=== PATIENT | female | born 1960 | race Caucasian/White ===

== ENCOUNTER 2020-04-19 07:59 | Outpatient (REF) | payer OTHER, SELFPAY ==
[2020-04-19 10:00] LABS: Alanine Aminotransferase 23 U/L (0-31); Albumin Level 4.4 g/dL (3.5-5.0); Alkaline Phosphatase 70 U/L (39-117); Anion Gap 11 (12-20); Aspartate Amino Transferase 19 U/L (5-31); Bilirubin Total 0.4 mg/dL (0.0-1.0); Blood Urea Nitrogen 20 mg/dL (9-16); Calcium 8.7 mg/dL (8.4-10.2); Carbon Dioxide 30 mmol/L (22-29); Chloride 103 mmol/L (96-108); Cholesterol 209 mg/dL; Estimated Glomerular Filt Rate > 60; Glucose Random 91 mg/dL (60-115); HDL Cholesterol 53 mg/dL; LDL Cholesterol Calculated 135 mg/dl; Potassium 4.6 mmol/l (3.3-5.1); Sodium 139 mmol/L (135-145); Total Protein 7.1 g/dL (6.5-8.0); Triglycerides 107 mg/dL
[2020-04-19 10:18] LABS: Estimated Average Glucose 117 mg/dL; Hemoglobin A1c % 5.7 %
[2020-04-19 10:22] LABS: Free T4 (Free Thyroxine) 1.18 ng/dL (0.71-1.85); Thyroid Stimulating Hormone 0.27 uIU/mL (0.32-4.0)
[2020-04-19 10:23] LABS: Hematocrit 38.6 % (37-47); Hemoglobin 12.8 g/dl (12.0-16.0); Mean Corpuscular HGB Conc 33.2 g/dl (31.0-35.0); Mean Corpuscular Hemoglobin 30.2 pg (27.0-33.0); PLT CLUMP 1; Red Blood Count 4.24 X10*6/uL (4.20-5.50); Red Cell Distribution Width 13.2 % (11.0-16.0)
[2020-04-19 10:24] LABS: PLT ABN DIST 1
[2020-04-19 10:25] LABS: HIV AB/AG Nonreactive (Nonreactive); HIV Num 1 0.13 S/CO (0.00-0.99)
[2020-04-19 10:28] LABS: ~HepC Num1 0.06 S/CO (0.00-0.79); ~Hepatitis C Antibody Nonreactive (Nonreactive)
[2020-04-19 10:36] LABS: White Blood Count 3.2 X10*3/uL (4.8-10.8)
== END 2020-04-19 08:00 | disposition home or self-care (01) ==
LOC: HO.LAB 07:59
PROVIDERS: Visit Provider Internal Medicine
DX: I10 Essential (primary) hypertension (principal); R73.01 Impaired fasting glucose; E78.00 Pure hypercholesterolemia, unspecified; E03.9 Hypothyroidism, unspecified; Z11.59 Encounter for screening for other viral diseases
CPT/HCPCS: 36415; 80053; 80061; 83036; 84439; 84443; 85027; 86803; 87389

== ENCOUNTER 2020-09-23 07:02 | Outpatient (REF) | payer OTHER, SELFPAY ==
[2020-09-23 08:12] LABS: Imm Gran Abs Auto 0.01 X10*3/uL (0.00-0.03); Imm Gran Pct Auto 0.3 % (0.0-0.4); MANUAL DIFF FLAG SCAN; PLT CLUMP 1; Red Cell Distribution Width 13.2 % (11.0-16.0); SCAN SMEAR FLAG 1
[2020-09-23 08:14] LABS: Basophils Percent Auto 1.2 % (0-2); Eosinophils Absolute Auto 0.1 X10*3/uL (0.0-0.4); Eosinophils Percent Auto 3.5 % (0-4); Hematocrit 41.2 % (37-47); Hemoglobin 13.7 g/dl (12.0-16.0); Lymphocytes Absolute Auto 2.3 X10*3/uL (1.2-4.9); Lymphocytes Percent Auto 67.6 % (20-40); Mean Corpuscular HGB Conc 33.3 g/dl (31.0-35.0); Mean Corpuscular Hemoglobin 30.6 pg (27.0-33.0); Mean Corpuscular Volume 92.2 fL (80-98); Monocytes Absolute Auto 0.5 X10*3/uL (0.1-1.2); Neutrophils Absolute Auto 0.4 X10*3/uL (2.0-8.3); Neutrophils Percent Auto 12.4 % (45-73); Red Blood Count 4.47 X10*6/uL (4.20-5.50); White Blood Count 3.4 X10*3/uL (4.8-10.8)
[2020-09-23 08:26] LABS: Platelet Count (Citrate) 264 X10*3/uL (150-310)
[2020-09-23 08:55] LABS: Free T4 (Free Thyroxine) 0.99 ng/dL (0.71-1.85); Thyroid Stimulating Hormone 3.09 uIU/mL (0.32-4.0)
[2020-09-23 09:42] LABS: SLIDE REVIEW VERIFIED
== END 2020-09-23 07:03 | disposition home or self-care (01) ==
LOC: HO.LAB 07:02
PROVIDERS: Visit Provider Internal Medicine
DX: D69.6 Thrombocytopenia, unspecified (principal); E03.9 Hypothyroidism, unspecified
CPT/HCPCS: 36415; 84439; 84443; 85025

== ENCOUNTER 2021-05-16 06:25 | Outpatient (REF) | payer OTHER, SELFPAY ==
[2021-05-16 07:19] LABS: Eosinophils Absolute Auto 0.1 X10*3/uL (0.0-0.4); Eosinophils Percent Auto 3.6 % (0-4); Hematocrit 39.8 % (37.0-47.0); Hemoglobin 12.8 g/dl (12.0-16.0); Imm Gran Abs Auto 0.01 X10*3/uL (0.00-0.03); Imm Gran Pct Auto 0.3 % (0.0-0.4); Lymphocytes Absolute Auto 2.5 X10*3/uL (1.2-4.9); Lymphocytes Percent Auto 62.3 % (20-40); MANUAL DIFF FLAG SCAN; Mean Corpuscular HGB Conc 32.2 g/dl (31.0-35.0); Mean Corpuscular Hemoglobin 29.6 pg (27.0-33.0); Mean Corpuscular Volume 91.9 fL (80.0-98.0); Mean Platelet Volume 11.1 fL (9.4-12.3); Monocytes Absolute Auto 0.5 X10*3/uL (0.1-1.2); Monocytes Percent Auto 13.5 % (2-11); Neutrophils Absolute Auto 0.8 x10*3/uL (2.0-8.3); Neutrophils Percent Auto 19.3 % (45-73); Platelet Count 313 X10*3/uL (160-400); Red Blood Count 4.33 X10*6/uL (4.20-5.50); SCAN SMEAR FLAG 1; White Blood Count 3.9 X10*3/uL (4.8-10.8)
[2021-05-16 07:41] LABS: Alanine Aminotransferase 13 U/L (0-31); Albumin Level 4.4 g/dL (3.5-5.0); Alkaline Phosphatase 72 U/L (39-117); Anion Gap 12 (12-20); Aspartate Amino Transferase 17 U/L (5-31); Bilirubin Total 0.3 mg/dL (0.0-1.0); Blood Urea Nitrogen 21 mg/dL (9-16); Calcium 9.3 mg/dL (8.4-10.2); Carbon Dioxide 29 mmol/L (22-29); Chloride 106 mmol/L (96-108); Cholesterol 182 mg/dL; Estimated Glomerular Filt Rate > 60; Glucose Random 100 mg/dL (60-115); HDL Cholesterol 52 mg/dL; LDL Cholesterol Calculated 109 mg/dl; Potassium 4.5 mmol/L (3.3-5.1); Sodium 142 mmol/L (135-145); Total Protein 7.4 g/dL (6.5-8.0); Triglycerides 108 mg/dL
[2021-05-16 07:42] LABS: SLIDE REVIEW VERIFIED
[2021-05-16 08:03] LABS: Thyroid Stimulating Hormone 3.08 uIU/mL (0.32-4.0); Vitamin D 25-OH Total 36.9 ng/mL (>30)
[2021-05-16 08:12] LABS: Vitamin B12 334 pg/mL (200-900)
[2021-05-16 08:38] LABS: Appearance Urine HAZY; Color Urine YELLOW; Glucose Urine UA NEG (NEG); Leukocyte Esterase Urine NEG (NEG); Nitrite Urine NEG (NEG); Specific Gravity - Urine >= 1.030 (1.005-1.025); Urine Blood NEG (NEG); Urine Ketones NEG (NEG); Urine Protein TRACE MG/DL (NEG-TRACE)
[2021-05-20 16:51] LABS: Triiodothyronine T3 Reverse 22 ng/dL (8-25)
== END 2021-05-16 06:26 | disposition home or self-care (01) ==
LOC: HO.LAB 06:25
PROVIDERS: PCP Internal Medicine; Visit Provider Internal Medicine
DX: I10 Essential (primary) hypertension (principal); K21.9 Gastro-esophageal reflux disease without esophagitis; E78.00 Pure hypercholesterolemia, unspecified; E03.9 Hypothyroidism, unspecified; E53.8 Deficiency of other specified B group vitamins; E55.9 Vitamin D deficiency, unspecified
CPT/HCPCS: 36415; 80053; 80061; 81003; 82306; 82607; 84439; 84443; 84482; 85025

== ENCOUNTER 2021-09-30 13:34 | Outpatient (REF) | payer OTHER, SELFPAY ==
[2021-09-30 13:58] LABS: MANUAL DIFF FLAG NO
[2021-09-30 15:16] LABS: Basophils Absolute Auto 0.1 X10*3/uL (0.0-0.2); Basophils Percent Auto 0.9 % (0-2); Eosinophils Absolute Auto 0.2 X10*3/uL (0.0-0.4); Eosinophils Percent Auto 2.6 % (0-4); Hematocrit 39.7 % (37.0-47.0); Imm Gran Abs Auto 0.01 X10*3/uL (0.00-0.03); Imm Gran Pct Auto 0.2 % (0.0-0.4); Lymphocytes Absolute Auto 3.1 X10*3/uL (1.2-4.9); Lymphocytes Percent Auto 52.6 % (20-40); Mean Corpuscular HGB Conc 32.7 g/dl (31.0-35.0); Mean Corpuscular Hemoglobin 30.2 pg (27.0-33.0); Mean Corpuscular Volume 92.3 fL (80.0-98.0); Mean Platelet Volume 11.4 fL (9.4-12.3); Monocytes Absolute Auto 0.7 X10*3/uL (0.1-1.2); Monocytes Percent Auto 12.3 % (2-11); Neutrophils Absolute Auto 1.8 x10*3/uL (2.0-8.3); Neutrophils Percent Auto 31.4 % (45-73); Platelet Count 315 X10*3/uL (160-400); White Blood Count 5.8 X10*3/uL (4.8-10.8)
== END 2021-09-30 13:35 | disposition home or self-care (01) ==
LOC: HO.LAB 13:34
PROVIDERS: PCP Internal Medicine; Visit Provider Internal Medicine
DX: D72.819 Decreased white blood cell count, unspecified (principal)
CPT/HCPCS: 36415; 85025

== ENCOUNTER 2021-11-30 13:47 | Outpatient (REF) | payer OTHER, SELFPAY | END 2021-11-30 13:48 | disposition home or self-care (01) | LOC: HO.LNP 13:47 | PROVIDERS: Visit Provider Surgery | DX: L72.3 Sebaceous cyst (principal); L08.9 Local infection of the skin and subcutaneous tissue, unspecified | CPT/HCPCS: 10060; 87071; 87205 ==

== ENCOUNTER → 2022-02-21 09:11 | Outpatient (BNVA) | payer OTHER, SELFPAY | PROVIDERS: PCP Internal Medicine; Visit Provider Surgery | DX: L72.3 Sebaceous cyst (principal) | CPT/HCPCS: 11402 ==

== ENCOUNTER 2022-03-02 13:19 | Outpatient (REF) | payer OTHER, SELFPAY ==
[2022-03-02 14:10] LABS: Influenza A PCR NEGATIVE (Negative); Influenza B PCR NEGATIVE (Negative); Resp Syncy Virus RNA Qual PCR NEGATIVE (Negative); SARS COV2 PCR INHOUSE POSITIVE (Negative)
== END 2022-03-02 13:20 | disposition home or self-care (01) ==
LOC: HO.LNP 13:19
PROVIDERS: Visit Provider Internal Medicine
DX: Z20.822 Contact with and (suspected) exposure to COVID-19 (principal); R09.89 Other specified symptoms and signs involving the circulatory and respiratory systems
CPT/HCPCS: 0241U

== ENCOUNTER 2022-07-18 06:57 | Outpatient (REF) | payer OTHER, SELFPAY ==
[2022-07-18 07:10] LABS: MANUAL DIFF FLAG NO
[2022-07-18 07:33] LABS: Basophils Absolute Auto 0.1 X10*3/uL (0.0-0.2); Basophils Percent Auto 1.1 % (0-2); Eosinophils Absolute Auto 0.1 X10*3/uL (0.0-0.4); Eosinophils Percent Auto 3.1 % (0-4); Hematocrit 39.6 % (37.0-47.0); Hemoglobin 13.1 g/dl (12.0-16.0); Lymphocytes Absolute Auto 2.4 X10*3/uL (1.2-4.9); Lymphocytes Percent Auto 52.4 % (20-40); Mean Corpuscular HGB Conc 33.1 g/dl (31.0-35.0); Mean Corpuscular Hemoglobin 29.3 pg (27.0-33.0); Mean Corpuscular Volume 88.6 fL (80.0-98.0); Mean Platelet Volume 10.5 fL (9.4-12.3); Monocytes Absolute Auto 0.5 X10*3/uL (0.1-1.2); Monocytes Percent Auto 11.3 % (2-11); Neutrophils Absolute Auto 1.4 x10*3/uL (2.0-8.3); Neutrophils Percent Auto 32.1 % (45-73); Platelet Count 277 X10*3/uL (160-400); Red Blood Count 4.47 X10*6/uL (4.20-5.50); White Blood Count 4.5 X10*3/uL (4.8-10.8)
[2022-07-18 08:14] LABS: Alanine Aminotransferase 20 U/L (0-31); Albumin Level 4.3 g/dL (3.5-5.0); Alkaline Phosphatase 71 U/L (39-117); Anion Gap 15 (12-20); Aspartate Amino Transferase 21 U/L (5-31); Bilirubin Total 0.7 mg/dL (0.0-1.0); Blood Urea Nitrogen 18 mg/dL (9-16); Carbon Dioxide 26 mmol/L (22-29); Chloride 106 mmol/L (96-108); Cholesterol 196 mg/dL; Estimated Glomerular Filt Rate > 60; Glucose Random 96 mg/dL (60-115); HDL Cholesterol 49 mg/dL; LDL Cholesterol Calculated 124 mg/dl; Magnesium 2.1 mg/dL (1.6-2.6); Potassium 4.7 mmol/L (3.3-5.1); Sodium 142 mmol/L (135-145); Total Protein 6.8 g/dL (6.5-8.0); Triglycerides 119 mg/dL
[2022-07-18 08:34] LABS: Free T4 (Free Thyroxine) 0.96 ng/dL (0.71-1.85); Thyroid Stimulating Hormone 3.73 uIU/mL (0.32-4.0)
[2022-07-18 10:30] LABS: Appearance Urine Clear; Color Urine Dark Yellow; Glucose Urine UA Negative (Negative); Leukocyte Esterase Urine Negative (Negative); Nitrite Urine Negative (Negative); PH 6.5 (5.0-9.0); UMIC TRIGGER UA YES; Urine Blood Negative (Negative); Urine Ketones Negative (Negative); Urine Protein 30 (1+) mg/dL (Neg-Trace)
[2022-07-18 10:35] LABS: Bacteria Urine None Seen (None Seen); Hyaline Casts Urine 0-2 /LPF (0-2); WBC Urine 0-5 /HPF (0-5)
== END 2022-07-18 06:58 | disposition home or self-care (01) ==
LOC: HO.LAB 06:57
PROVIDERS: PCP Internal Medicine; Visit Provider Internal Medicine
DX: I10 Essential (primary) hypertension (principal); E78.00 Pure hypercholesterolemia, unspecified; E03.9 Hypothyroidism, unspecified
CPT/HCPCS: 36415; 80053; 80061; 81001; 83735; 84439; 84443; 85025

== ENCOUNTER 2022-10-10 09:44 | Outpatient (REF) | payer OTHER, SELFPAY ==
[2022-10-10 10:04] LABS: MANUAL DIFF FLAG NO
[2022-10-10 10:34] LABS: Basophils Percent Auto 0.9 % (0-2); Eosinophils Absolute Auto 0.2 X10*3/uL (0.0-0.4); Eosinophils Percent Auto 3.4 % (0-4); Hematocrit 40.7 % (37.0-47.0); Hemoglobin 13.6 g/dl (12.0-16.0); Lymphocytes Absolute Auto 2.3 X10*3/uL (1.2-4.9); Lymphocytes Percent Auto 51.9 % (20-40); Mean Corpuscular HGB Conc 33.4 g/dl (31.0-35.0); Mean Corpuscular Hemoglobin 29.9 pg (27.0-33.0); Mean Corpuscular Volume 89.5 fL (80.0-98.0); Mean Platelet Volume 11.1 fL (9.4-12.3); Monocytes Absolute Auto 0.7 X10*3/uL (0.1-1.2); Monocytes Percent Auto 16.9 % (2-11); Neutrophils Absolute Auto 1.2 x10*3/uL (2.0-8.3); Neutrophils Percent Auto 26.9 % (45-73); Platelet Count 311 X10*3/uL (160-400); Red Blood Count 4.55 X10*6/uL (4.20-5.50); White Blood Count 4.4 X10*3/uL (4.8-10.8)
[2022-10-10 11:15] LABS: Erythrocyte Sedimentation Rate 13 MM/HR (0-20)
[2022-10-10 12:11] LABS: Alanine Aminotransferase 23 U/L (0-31); Albumin Level 4.5 g/dL (3.5-5.0); Alkaline Phosphatase 67 U/L (39-117); Amylase 41 U/L (28-100); Aspartate Amino Transferase 25 U/L (5-31); Bilirubin Direct 0.2 mg/dL (0.0-0.5); Bilirubin Total 0.7 mg/dL (0.0-1.0); C Reactive Protein 0.53 mg/dL (< or = 0.50); Lipase 15 U/L (8-78); Total Protein 7.3 g/dL (6.5-8.0)
[2022-10-10 12:54] LABS: CDiff Gene PCR NEGATIVE (Negative)
[2022-10-10 13:28] LABS: Leukocytes Stool Qualitative NEGATIVE (NEGATIVE)
== END 2022-10-10 09:45 | disposition home or self-care (01) ==
LOC: HO.LAB 09:44
PROVIDERS: PCP Internal Medicine; Visit Provider Internal Medicine
DX: R10.10 Upper abdominal pain, unspecified (principal); R19.7 Diarrhea, unspecified
CPT/HCPCS: 36415; 80076; 82150; 83690; 85025; 85652; 86140; 87493; 87507; 89055

== ENCOUNTER 2022-10-11 12:09 | Outpatient (REF) | payer OTHER, SELFPAY ==
[2022-10-11 17:21] LABS: Adenovirus F 40/41 Not Detected (Not Detect.); Astrovirus Not Detected (Not Detect.); Campylobacter Not Detected (Not Detect.); Cryptosporidium Not Detected (Not Detect.); Cyclospora cayetanensis Not Detected (Not Detect.); E. coli EAEC Not Detected (Not Detect.); E. coli EPEC Not Detected (Not Detect.); E. coli ETEC Not Detected (Not Detect.); E. coli STEC Not Detected (Not Detect.); Entamoeba histolytica Not Detected (Not Detect.); Giardia lamblia Not Detected (Not Detect.); Norovirus GI/GII Not Detected (Not Detect.); Plesiomonas shigelloides Not Detected (Not Detect.); Rotavirus A Not Detected (Not Detect.); Salmonella Not Detected (Not Detect.); Sapovirus Not Detected (Not Detect.); Shigella sp./EIEC Not Detected (Not Detect.); Vibrio Not Detected (Not Detect.); Vibrio Cholerae Not Detected (Not Detect.); Yersinia enterocolitica Not Detected (Not Detect.)
== END 2022-10-11 12:10 | disposition home or self-care (01) ==
LOC: HO.LNP 12:09
PROVIDERS: Visit Provider Internal Medicine
DX: R19.7 Diarrhea, unspecified (principal)
CPT/HCPCS: 87507

== ENCOUNTER 2022-11-11 08:47 | Outpatient (REF) | payer OTHER, SELFPAY ==
[2022-11-11 09:13] LABS: Baso%MD 1.5 %; Hematocrit 41.5 % (37.0-47.0); Hemoglobin 13.5 g/dl (12.0-16.0); Lymph%MD 58.4 %; Mean Corpuscular HGB Conc 32.5 g/dl (31.0-35.0); Mean Corpuscular Hemoglobin 29.7 pg (27.0-33.0); Mean Corpuscular Volume 91.2 fL (80.0-98.0); Mean Platelet Volume 10.9 fL (9.4-12.3); Neut%MD 23.1 %; Platelet Count 283 X10*3/uL (160-400); Red Blood Count 4.55 X10*6/uL (4.20-5.50); Red Cell Distribution Width 13.2 % (11.0-16.0)
[2022-11-11 10:59] LABS: Band Neutrophils Percent 0 % (3-5); Basophils Percent Manual 1 % (0-2); Eosinophils Absolute Manual 0.2 X10*3/uL (0.0-0.4); Eosinophils Percent Manual 5 % (0-4); Lymphocytes Absolute Manual 2.1 X10*3/uL (1.2-4.9); Lymphocytes Percent Manual 52 % (20-40); Monocytes Absolute Manual 0.2 X10*3/uL (0.1-1.2); Monocytes Percent Manual 5 % (2-11); Neutrophils Absolute Manual 1.5 X10*3/uL (2.0-8.3); Neutrophils Percent Manual 37 % (45-73)
[2022-11-11 11:00] LABS: Platelet Estimate NORMAL (NORMAL); Platelet Morphology Comment NORMAL; RBC Morphology NORMAL
[2022-11-11 11:00] LABS: Appearance Urine Clear; Color Urine Yellow; Glucose Urine UA Negative (Negative); Leukocyte Esterase Urine Negative (Negative); Nitrite Urine Negative (Negative); PH 5.5 (5.0-9.0); Specific Gravity - Urine 1.025 (1.005-1.025); Urine Blood Negative (Negative); Urine Ketones Negative (Negative); Urine Protein Negative (Neg-Trace)
[2022-11-11 11:49] LABS: Free T4 (Free Thyroxine) 1.17 ng/dL (0.71-1.85)
== END 2022-11-11 08:48 | disposition home or self-care (01) ==
LOC: HO.LAB 08:47
PROVIDERS: Absent Provider Internal Medicine; PCP Internal Medicine; Visit Provider Internal Medicine
DX: E03.9 Hypothyroidism, unspecified (principal); R82.90 Unspecified abnormal findings in urine; D72.9 Disorder of white blood cells, unspecified; R11.2 Nausea with vomiting, unspecified
CPT/HCPCS: 36415; 81003; 84439; 84443; 85007; 85027; 87086

== ENCOUNTER → 2022-12-11 11:00 | Outpatient (BNV) | payer OTHER, SELFPAY | PROVIDERS: PCP Internal Medicine; Visit Provider Internal Medicine | DX: D72.819 Decreased white blood cell count, unspecified (principal) | CPT/HCPCS: 99203 ==

== ENCOUNTER 2023-07-16 06:30 | Day surgery (SDC) | payer OTHER, SELFPAY ==
[2023-07-12 16:47] VITALS: BMI 35.8
[2023-07-16 06:38] VITALS: BMI 31.1
[2023-07-16 06:44] VITALS: BP 95/65; PULSE 106; RESP 16; TEMP 36.6; O2SAT 96
[2023-07-16] MEDS: Lactated Ringers 1,000 ML 100 ML IVCONT (07:00)
--- NOTE | 2023-07-16 07:05 | P.CONAN_ITS ---
Documented by User: Ophelia Wharton NP 07/13/23 10:28 HPI - Anesthesia Eval Consult details Narrative: 62yo F for Upper Endoscopy and Colonoscopy [facility] Active Problems Active Problems: All Active Problems (Updated 07/12/23 @ 16:51 by Shani Valdez RN) Leucopenia (Chronic) Upper respiratory infection, acute (Acute) Sebaceous cyst (Acute) Past Medical History Medical History (Updated 07/16/23 @ 06:59 by Mery Sullivan RN) History of ovarian cyst History of breast cancer Leukopenia Carlos's disease Scalp lesion Hypothyroid Essential (primary) hypertension Infected sebaceous cyst Family History Family History Brother Colon cancer Father Congenital heart disease Mother Stroke Surgical History Surgical History (Updated 07/16/23 @ 06:59 by Mery Sullivan RN) History of lumpectomy of right breast History of appendectomy Breast tumor History of gallbladder disease Total knee replacement status Social History Social History (Updated 12/11/22 @ 11:18 by Olinda Cardozo) Household Members: Spouse Housing: House Alcohol intake: current Alcohol intake frequency: holidays/special occasions only Patient Tobacco Use Status: Never used Tobacco Use of substances other than those prescribed or required for medical reasons: No Are you DNR?: No Advance Directives: No Advance Directives Information Provided: Yes service: No Current occupational status: retired Meds Allergies Allergy/AdvReac Type Severity Reaction Status Date / Time codeine [CODEINE] Allergy Unknown NAUSEA Verified 03/02/22 09:04 Sulfa (Sulfonamide Allergy Unknown NAUSEA Verified 03/02/22 09:04 Antibiotics) [SULFA(SULFONAMIDE ANTIBIOTICS)] hydromorphone [From Dilaudid] AdvReac Intermediate Hypotension Verified 07/16/23 07:03 Home Medications Medication Instructions Recorded Confirmed Last Taken Type doxycycline monohydrate 100 mg 100 mg PO BID 11/30/21 03/02/22 Unknown History capsule hydrochlorothiazide 12.5 mg tablet 12.5 mg PO DAILY 11/30/21 12/11/22 Unknown History levothyroxine 175 mcg tablet 175 mcg PO DAILY 11/30/21 07/16/23 07/16/23 History lisinopril 10 mg tablet 10 mg PO DAILY 11/30/21 12/11/22 Unknown History multivitamin with folic acid 400 1 tab PO DAILY 11/30/21 12/08/22 Unknown History mcg tablet (Daily-Buster (with folic acid)) amoxicillin 500 mg capsule 2,000 mg PO DIRECTED PRN 12/08/22 12/08/22 Unknown History Toothache clobetasol 0.05 % topical ointment 1 appl topical BID 12/08/22 12/11/22 Unknown History mupirocin calcium 2 % topical cream 1 appl topical TID 12/08/22 12/08/22 Unknown History pantoprazole 40 mg tablet,delayed 40 mg PO DAILY 07/12/23 07/16/23 07/16/23 History release (Protonix) Exam Height,Weight and Vital Signs: Height 5 ft 7 in Weight 103.589 kg Assessment and Plan Assessment Anesthesia Assessment: Chart Reviewed Documented by User: Celine Greene DO 07/16/23 07:07 [facility] Past Medical History Medical History (Updated 07/16/23 @ 06:59 by Mery Sullivan RN) History of ovarian cyst History of breast cancer Leukopenia Carlos's disease Scalp lesion Hypothyroid Essential (primary) hypertension Infected sebaceous cyst Family History Family History Brother Colon cancer Father Congenital heart disease Mother Stroke Family history of problems with anesthesia: No Surgical History Surgical History (Updated 07/16/23 @ 06:59 by Mery Sullivan RN) History of lumpectomy of right breast History of appendectomy Breast tumor History of gallbladder disease Total knee replacement status History of Problems with Anesthesia: No Social History Social History (Updated 12/11/22 @ 11:18 by Olinda Cardozo) Household Members: Spouse Housing: House Alcohol intake: current Alcohol intake frequency: holidays/special occasions only Patient Tobacco Use Status: Never used Tobacco Use of substances other than those prescribed or required for medical reasons: No Are you DNR?: No Advance Directives: No Advance Directives Information Provided: Yes service: No Current occupational status: retired Meds Allergies Allergy/AdvReac Type Severity Reaction Status Date / Time codeine [CODEINE] Allergy Unknown NAUSEA Verified 03/02/22 09:04 Sulfa (Sulfonamide Allergy Unknown NAUSEA Verified 03/02/22 09:04 Antibiotics) [SULFA(SULFONAMIDE ANTIBIOTICS)] hydromorphone [From Dilaudid] AdvReac Intermediate Hypotension Verified 07/16/23 07:03 Home Medications Medication Instructions Recorded Confirmed Last Taken Type doxycycline monohydrate 100 mg 100 mg PO BID 11/30/21 03/02/22 Unknown History capsule hydrochlorothiazide 12.5 mg tablet 12.5 mg PO DAILY 11/30/21 12/11/22 Unknown History levothyroxine 175 mcg tablet 175 mcg PO DAILY 11/30/21 07/16/23 07/16/23 History lisinopril 10 mg tablet 10 mg PO DAILY 11/30/21 12/11/22 Unknown History multivitamin with folic acid 400 1 tab PO DAILY 11/30/21 12/08/22 Unknown History mcg tablet (Daily-Buster (with folic acid)) amoxicillin 500 mg capsule 2,000 mg PO DIRECTED PRN 12/08/22 12/08/22 Unknown History Toothache clobetasol 0.05 % topical ointment 1 appl topical BID 12/08/22 12/11/22 Unknown History mupirocin calcium 2 % topical cream 1 appl topical TID 12/08/22 12/08/22 Unknown History pantoprazole 40 mg tablet,delayed 40 mg PO DAILY 07/12/23 07/16/23 07/16/23 History release (Protonix) Exam Exam Date and Time: July 16, 2023699 Height,Weight and Vital Signs: Height 5 ft 7 in Weight 103.589 kg Height 5 ft 8 in Weight 92.76 kg Vital Signs Temperature 97.8 F 07/16/23 06:44 Pulse Rate 106 H 07/16/23 06:44 Respiratory Rate 16 07/16/23 06:44 Blood Pressure 95/65 07/16/23 06:44 Pulse Oximetry 96 07/16/23 06:44 Oxygen Delivery Method Room Air 07/16/23 06:44 Temperature 97.8 F 07/16/23 06:44 Pulse Rate 106 H 07/16/23 06:44 Respiratory Rate 16 07/16/23 06:44 Blood Pressure 95/65 07/16/23 06:44 Pulse Oximetry 96 07/16/23 06:44 Oxygen Delivery Method Room Air 07/16/23 06:44 Airway Mallampati Class: I TM Dist: >3cm Neck ROM: Full Loose/Missing/Broken Teeth: No Heart: S1S2 Lungs: CTAB Assessment and Plan Assessment Anesthesia Assessment: Anesthesia Plan Discussed and Chart Reviewed Final Anesthetic Review Family History of Problems with Anesthesia: No History of Problems with Anesthesia: No NPO: Yes ASA Class: II Final Preanesthetic Review: No Changes in Pt Med Stat, Meds/Allgs Chart Reviewed, Consent Obtained/Reviewed and Anes Risks/Benef Reviewed Patient Risk: Low Procedure Risk: Low Anesthetic Plan Anesthetic Plan: MAC: and Agree w/ Assess. and Plan Disposition: Standard PACU
[2023-07-16 07:19] VITALS: PULSE 83
[2023-07-16 08:50] VITALS: BP 87/54; PULSE 70; RESP 16; TEMP 36.3; O2SAT 97
--- NOTE | 2023-07-16 08:55 | P.BOP_ITS ---
Brief Operative Note Date of Service: 07/16/23 Pre-op diagnosis: GERD, Diarrhea, Screening Post-op diagnosis: other (Hiatal hernia, Diverticulosis) Procedure: EGD with biopsies, Colonoscopy to the cecum Surgeon: Ian Luna MD Anesthesia: MAC Was an Day Spa Manager used for this Procedure?: No Estimated blood loss (mL): 2.0 Pathology: other (A. Descending duodenum B. Gastric antrum C. Gastric polyps) Condition: stable Disposition: PACU
[2023-07-16 09:05] VITALS: BP 95/60; PULSE 69; RESP 18; TEMP 36.7; O2SAT 97
--- NOTE | 2023-07-16 11:14 | OP_ITS ---
DATE OF SERVICE: 07/16/2023 SURGEON: Ian Luna MD INDICATIONS: The patient presents for evaluation of gastroesophageal reflux, intermittent diarrhea, family history of colon cancer, and colorectal cancer screening. Full consent has been obtained from her for this, including risks of bleeding and perforation. PREOPERATIVE DIAGNOSIS: POSTOPERATIVE DIAGNOSIS: PROCEDURE PERFORMED: Esophagogastroduodenoscopy with biopsies and colonoscopy to the cecum. ESTIMATED BLOOD LOSS: COMPLICATIONS: ANESTHESIA: Monitored anesthesia care. ASSISTANTS: SPECIMENS: PREOPERATIVE DIAGNOSES: Gastroesophageal reflux, intermittent diarrhea, family history of colon cancer, colorectal cancer screening. POSTOPERATIVE DIAGNOSES: Gastroesophageal reflux, intermittent diarrhea, family history of colon cancer, colorectal cancer screening, hiatal hernia, rule out celiac disease, mild diverticulosis, small internal hemorrhoids. DESCRIPTION OF PROCEDURE: The patient was placed in the left lateral decubitus position. The Olympus video gastroscope was passed in the posterior oropharynx and upper esophagus under direct vision. The scope was passed slowly to the distal esophagus. The gastroesophageal junction appeared normal at 36 cm. There was no sign of any esophagitis nor Calderon's esophagus. There was no sign of any stricture. There was a small hiatal hernia. The scope entered the stomach and was advanced to the pylorus. The duodenum was cannulated to the descending portion. The duodenum including the bulb appeared normal without mass or ulceration. Biopsies were obtained from the 2nd and 3rd portions of the duodenum. The duodenal mucosa including the bulb appeared normal. The scope was withdrawn back to the stomach. The gastric antrum had some mild areas of erythema and edema, but no inflammation otherwise. There was good peristalsis. Biopsies were obtained from the antrum. The scope was retroflexed visualizing the proximal stomach carefully, which appeared normal, without any sign of mass or ulceration, other than several hyperplastic polyps. Two of these were biopsied. The scope was straightened and withdrawn back to the esophagus. The esophageal mucosa appeared normal. The scope was withdrawn from the patient. She was turned around for the colonoscopy. The digital rectal exam revealed no abnormalities. The Olympus video pediatric colonoscope was entered into the rectum, advanced to the cecum with the assistance of abdominal pressure. Once in the cecum, I did identify normal-appearing cecal pouch with appendiceal orifice and a normal-appearing ileocecal valve. The entire cecum and ileocecal valve appeared normal. The scope was then slowly withdrawn assessing all mucosal surfaces carefully. Preparation was excellent. I did not visualize any sign of polyps, colitis, nor angiodysplasia. There were occasional diverticula noted in the sigmoid colon. In the rectum, scope was retroflexed visualizing internal hemorrhoids, but no other pathology. The rectal mucosa appeared normal. The scope was straightened and withdrawn from the patient. She tolerated both procedures well and was returned to the recovery area in stable condition. IMPRESSION: 1. Small hiatal hernia. 2. Gastric polyps. 3. Rule out celiac disease. 4. Occasional diverticulosis. 5. Internal hemorrhoids. PLAN: The results of the biopsies will be checked. At this point, she reports that she is feeling much better after having stopped her anastrozole. She will continue her daily Protonix as she thinks that is working better than her omeprazole in regard to reflux. I would recommend a repeat colonoscopy in 5 years given her significant family history of colon cancer in her brother. She will otherwise see me on a p.r.n. basis. This has been discussed with her . MD MERISSA Freitas/NICK / [phone] MTDD
== END 2023-07-16 09:28 | disposition home or self-care (01) ==
PROVIDERS: PCP Internal Medicine; Visit Provider Internal Medicine
PROC: (CPT 45378; principal; 2023-07-16 07:30)
DX: Z12.11 Encounter for screening for malignant neoplasm of colon (principal); Z80.0 Family history of malignant neoplasm of digestive organs; K57.30 Diverticulosis of large intestine without perforation or abscess without bleeding; K64.8 Other hemorrhoids; R19.7 Diarrhea, unspecified; K21.9 Gastro-esophageal reflux disease without esophagitis; K31.7 Polyp of stomach and duodenum; K44.9 Diaphragmatic hernia without obstruction or gangrene; I10 Essential (primary) hypertension; E03.9 Hypothyroidism, unspecified; Z79.899 Other long term (current) drug therapy; Z85.3 Personal history of malignant neoplasm of breast; Z92.3 Personal history of irradiation; Z88.2 Allergy status to sulfonamides; Z88.5 Allergy status to narcotic agent; Z88.8 Allergy status to other drugs, medicaments and biological substances
CPT/HCPCS: 45378; 43239; 88305; 88313; 88342; J2704

== ENCOUNTER 2024-10-13 07:34 | Outpatient (REF) | payer MEDICARE, OTHER, SELFPAY ==
--- OUTSIDE RECORDS SUMMARY | 2024-10-13 07:42 | XMS_ITS | Patient Health Record ---
Author Organization [facility] Address [address] [place] [address] Care Team Providers Care Oil Treater Name Role Phone Gilles Tucker MD Primary Care Provider Ian Peñaloza Unavailable [phone] Allergies Allergen (clinical drug ingredient) Drug/Non Drug Allergy documented on EMR Reaction Allergy Type Onset Date Status Codeine Phosphate Unknown Drug Allergy Active Substance with sulfonamide structure and antibacterial mechanism of action (substance) sulfa (uncoded) Unknown Allergy Active Reason For Referral No Information Medications Medication SIG (Take, Route, Frequency, Duration) Notes Start Date End Date Status PriLOSEC 40 MG 1 capsule Orally Once a day Not-Taking Omeprazole 40 MG 1 capsule Orally Once a day Active Sucralfate 1 GM 1 tablet on an empty stomach 30 to 60 minutes before the meal Orally Before meals three times day and at bedtime for 30 day(s) 10/09/2022 Not-Taking Lisinopril 10 MG 1 tablet Orally Once a day Active hydroCHLOROthiazide 12.5 MG 1 tablet in the morning Orally Once a day for 30 day(s) Active Vitamin B 12 100 MCG as directed Orally Active Sucralfate 1 GM 1 tablet dissolved in 3 or 4 ounces of warm water Orally Take 30 to 60 minutes on an empty stomach before a meal and at bedtime for 30 day(s) 06/12/2023 Active Levoxyl 175 MCG 1 tablet on an empty stomach in the morning Orally Once a day Active Folic Acid 400 MCG 1 tablet Orally Once a day for 30 day(s) Active Immunizations Vaccine Route Administration Date Status Comme nts Influenza Unknown 03/04/2018 Administered Influenza Unknown 04/25/2022 Administered Problems Problem Type SNOMED Code ICD Code Onset Dates Problem Status W/U Status Risk Notes Problem 631999000 Encounter for screening for malignant neoplasm of colon (Z12.11) Active confirmed Problem Benign neoplasm of stomach (34500609) Polyp of stomach and duodenum (K31.7) Active confirmed Problem Diverticular disease of colon (897028132) Diverticulosis of large intestine without perforation or abscess without bleeding (K57.30) Active confirmed Problem 385189851 Nausea (R11.0) Active confirmed Problem 38113183 Anorexia (R63.0) Active confirmed Problem 01235983 Abdominal pain, epigastric (R10.13) Active confirmed Problem 597221006 Gastroesophageal reflux disease without esophagitis (K21.9) Active confirmed Problem 048160860 Family history o f colon cancer (Z80.0) Active confirmed Problem 22711389 Diarrhea, unspecified type (R19.7) Active confirmed Problem 88167649 Upper abdominal pain (R10.10) Active confirmed Problem 95702216 Irritable bowel syndrome, unspecified type (K58.9) Active confirmed Problem 248095369 Non-intractable vomiting without nausea, unspecified vomiting type (R11.11) Active confirmed Problem 25008495 Nausea and vomiting, unspecified vomiting type (R11.2) Active confirmed Problem 157107412 Abnormal white blood cell (WBC) count (D72.9) Active confirmed Plan Of Treatment Pending Test Test Name Order Date CT Abdomen and Pelvis 03/01/2011 CHEM 7 PROFILE 06/11/2023 LIVER PROFILE 06/11/2023 LIVER PROFILE 10/09/2022 CRP 06/11/2023 CRP 10/09/2022 CRP 08/08/2022 CBC w DIFF 11/13/2018 CBC w DIFF 06/11/2023 CBC w DIFF 10/09/2022 CBC w DIFF 08/08/2022 SED RATE (ESR) 08/08/2022 SED RATE (ESR) 06/11/2023 SED RATE (ESR) 10/09/2022 STOOL WBC 10/09/2022 STOOL WBC 08/08/2022 C DIFFICILE RFLX PCR 10/09/2022 C DIFFICILE RFLX PCR 08/08/2022 CBC & MANUAL DIFFERENTIAL 10/16/2022 Amylase 06/11/2023 Lipase 06/11/2023 Calprotectin, Fecal 08/08/2022 Pathology 07/16/2023 GI PANEL 10/09/2022 GI PANEL 08/08/2022 Future Test Test Name Order Date COLONOSCOPY 03/06/2012 COLONOSCOPY 10/05/2017 UPPER GI ENDOSCOPY 01/03/2023 COLONOSCOPY 01/03/2023 Insurance Providers Payer Name Payer Address Payer Phone Subscriber Number Group Number Insured Name Patient Relationship to Insured Coverage Start Date Coverage End Date [facility] [address] [place] [phone] [id number] JOSE ALBERTO MISTRY Self - patient is the insured Medical (General) History Medical History History ICD Code Colonoscopies in 1993(Dr. Mcclendon), 2001, and 2007--negative GERD-EGD 08/2007--small HH, no esophagiti s, gastritis--bx. neg for H.pylori Hypothroidism Denies [place],DM,CVA,Lung disease,renal dise ase Negative colonoscopy in 11/2012 and --negative for polyps HTN IBS-negative labs for celiac disease in 2018 Surgical History Surgery Date(Month/Year) CCY Right oopherectomy Right breast bx-benign Appy Bladder suspension 2017
--- OUTSIDE RECORDS SUMMARY | 2024-10-13 07:42 | XMS_ITS ---
Author Organization [facility] Address [address] [place] [address] Care Team Providers Care Inventory Clerk Name Role Phone Gilles Tucker MD Primary Care Provider Unavaila Ian Claros [phone] REASON FOR VISIT gerd,diarrhea,screenig, fam hx colon ca Problems Problem Type SNOMED Code ICD Code Onset Dates Problem Status W/U Status Risk Notes Problem Diverticular disease of colon (449701763) Diverticulosis of large intestine without perforation or abscess without bleeding (K57.30) Active confirmed Problem Benign neoplasm of stomach (68169957) Polyp of stomach and duodenum (K31.7) Active confirmed Encounters Encounter Location Date Provider Diagnosis [facility] [place] [facility] Outpatient [address] [place] [phone] 07/16/2023 Ian Luna Encounter for screen ing colonoscopy Z12.11 ; Family history of colon cancer Z80.0 ; Diverticulosis of large intestine without perforation or abscess without bleeding K57.30 ; Other hemorrhoids K64.8 ; Hiatal hernia K44.9 ; Other diseases of stomach and duodenum K31.89 ; Polyp of stomach and duodenum K31.7 ; Gastroesophageal reflux disease without esophagitis K21.9 and Diarrhea R19.7 Assessments Encounter Date Diagnosis (ICD Code) Assessment Notes Treatment Notes Treatment Clinical Notes Section Notes 07/16/2023 Encounter for screening colonoscopy (ICD-10 - Z12.11) 07/16/2023 Family history of colon cancer (ICD-10 - Z80.0) 07/16/2023 Diverticulosis of large intestine without perforation or abscess without bleeding (ICD-10 - K57.30) 07/16/2023 Other hemorrhoids (ICD-10 - K64.8) 07/16/2023 Hiatal hernia (ICD-10 - K44.9) 07/16/2023 Other diseases of stomach and duodenum (ICD-10 - K31.89) 07/16/2023 Polyp of stomach and duodenum (ICD-10 - K31.7) 07/16/2023 Gastroesophageal reflux disease without esophagitis (ICD-10 - K21.9) 07/16/2023 Diarrhea (ICD-10 - R19.7) Plan Of Treatment No Information Progress Notes * HAMIDA MISTRYSMITHOB:[birth year] (64 yo F)Acc No.[id number]:07/16/2023 EGD and COL/MAC Patient:?JOSE ALBERTO MISTRY Provider:?Ian Luna MD :1960???Age:62 Y???Sex:Female D ate:07/16/2023 Address:[address] [place], [place] [id number] Pcp:Gilles Tucker MD Subjective: * Chief Complaints: * ???1. Gerd,diarrhea,screenig , fam hx colon ca. * Medical History:? Objective: * Vitals:? Assessment: * Assessment: 1.?Encounter for screening c olonoscopy - Z12.11 (Primary)???2.?Family history of colon cancer - Z80.0???3.?Diverticulosis of large intestine without perforation or abscess without bleeding - K57.30???4.?Other hemorrhoids - K64.8? ?5.?Hiatal hernia - K44.9???6.?Other diseases of stomach and duodenum - K31.89???7.?Polyp of stomach and duodenum - K31.7???8.?Gastroesophageal reflux disease without esophagitis - K21.9???9.?Diarrhea - R19.7??? Plan: * Treatment: * Procedure Codes:?88968 DIAGN OSTIC COLONOSCOPY, 96244 UPPER GI ENDOSCOPY, BIOPSY * * The named appointment provid er may or may not be the originator of this progress note, and it is not deemed complete until electronically signed by the appointment provider. Sign off status: Pending * Provider:?Ian Luna MD Date:? 024 Generated for Cely ybarra/Carlos/Mar on:?10/13/2024 07:41 AM EDT
--- OUTSIDE RECORDS SUMMARY | 2024-10-13 07:42 | XMS_ITS ---
Author Organization [facility] Address [address] [place] [id number] Care Team Providers Care Rig Superintendent Name Role Phone Gilles Tucker MD Primary Care Provider UnavailIan Khalil [phone] REASON FOR VISIT radiation Medications Medication SIG (Take, Route, Fr equency, Duration) Notes Start Date End Date Status Sucralfate 1 GM 1 tablet dissolved i n 3 or 4 ounces of warm water Orally Take 30 to 60 minutes on an empty stomach before a meal and at bedtime for 30 day(s) 06/12/2023 Active Problems Problem Type SNOMED Code ICD Code Onset Dates Problem Status W/U Status Risk Notes Problem 061152222 Nausea (R11.0) Active confirmed Problem 06082654 Anorexia (R63.0) Active confirmed Encounters Encounter Location Date Provider Diagnosis [facility] [address] [place] [phone] 06/11/2023 Ian Luna Nausea R11.0 ; Anorexia R63.0 and Nausea and vomiting, unspecified vomiting type R11.2 Assessments Encounter Date Diagnosis (ICD Code) Assessment Notes Treatment Notes Treatment Clinical Notes Section Notes 06/11/2023 Nausea (ICD-10 - R11.0) 06/11/2023 Anorexia (ICD-10 - R63.0) 06/11/2023 Nausea and vomiting, unspecified vomiting type (ICD-10 - R11.2) Plan Of Treatment Medication Medication Name Sig Start Date Stop Date Notes Sucralfate 1 GM 1 tablet dissolved i n 3 or 4 ounces of warm water Orally Take 30 to 60 minutes on an empty stomach before a meal and at bedtime for 30 day(s) 06/12/2023 Pending Test Test Name Order Date CHEM 7 PROFILE 06/11/2023 LIVER PROFILE 06/11/2023 CRP 06/11/2023 CBC w DIFF 06/11/2023 SED RATE (ESR) 06/11/2023 Amylase 06/11/2023 Lipase 06/11/2023 Progress Notes * PAUL MISTRYOB:[birth year] (62 yo F)Acc No.[id number]:06/11/2023 Patient:?JOSE ALBERTO MISTRY :1960???Age:62 Y???Sex:Female Address: [place] [address] * Refills? Start Sucralfate Tablet, 1 GM, Orally, 120, 1 tablet dissolved in 3 or 4 ounces of warm water, Take 30 to 60 minutes on an empty stomach before a meal and at bedtime, 30 day(s), Refills=2 Subjective: * Chief Complaints: * ???Radiation * Medical History:? * Surgical History:? * Hospitalization/Major Diagno stic Procedure:? * Medications:? Objective: Assessment: * Assessment: 1.?Nausea - R11.0 (Primary)? 2.?Anorexia - R63.0?3.?Nausea and vomiting, unspecified vomiting type - R11.2? Plan: * Treatment: ?LAB: SED RATE (ESR) ?LAB: Amylase ?LAB: Lipase2.?Anorexia?LAB: CHEM 7 PROFILE ?LAB: LIVER PROFILE ?LAB: CRP ?LAB: CBC w DIFF* Send copies of results to Dr Chidi Tucker ?LAB: SED RATE (ESR) ?LAB: Amylase ?LAB: Lipase3.?Nausea and vomiting, unspecified vomiting type?LAB: CHEM 7 PROFILE ?LAB: LIVER PROFILE ?LAB: CRP ?LAB: CBC w DIFF* Send copies of results to Dr Chidi Tucker ?LAB: SED RATE (ESR) ?LAB: Amylase ?LAB: Lipase4.?Others? Start Sucralfate Tablet, 1 GM, 1 tablet dissolved in 3 or 4 ounces of warm water, Orally, Take 30 to 60 minutes on an empty stomach before a meal and at bedtime, 30 day(s), 120, Refills 2.?? * Procedure Codes:? * true * Date:? Generated for Cely ybarra/Carlos/Loraitting on:?10/13/2024 07:41 AM EDT
[2024-10-13 07:53] LABS: MANUAL DIFF FLAG NO
[2024-10-13 08:18] LABS: Basophils Percent Auto 0.3 % (0-2); Eosinophils Absolute Auto 0.1 X10*3/uL (0.0-0.4); Eosinophils Percent Auto 2.6 % (0-4); Hematocrit 39.2 % (37.0-47.0); Hemoglobin 13.4 g/dl (12.0-16.0); Lymphocytes Absolute Auto 1.7 X10*3/uL (1.2-4.9); Lymphocytes Percent Auto 50.9 % (20-40); Mean Corpuscular HGB Conc 34.2 g/dl (31.0-35.0); Mean Corpuscular Hemoglobin 30.6 pg (27.0-33.0); Mean Corpuscular Volume 89.5 fL (80.0-98.0); Mean Platelet Volume 10.6 fL (9.4-12.3); Monocytes Absolute Auto 0.4 X10*3/uL (0.1-1.2); Monocytes Percent Auto 12.3 % (2-11); Neutrophils Absolute Auto 1.2 x10*3/uL (2.0-8.3); Neutrophils Percent Auto 33.9 % (45-73); Platelet Count 221 X10*3/uL (160-400); Red Blood Count 4.38 X10*6/uL (4.20-5.50); Red Cell Distribution Width 13.2 % (11.0-16.0); White Blood Count 3.4 X10*3/uL (4.8-10.8)
[2024-10-13 08:24] LABS: Appearance Urine Clear; Color Urine Yellow; Glucose Urine UA Negative (Negative); Leukocyte Esterase Urine Negative (Negative); Nitrite Urine Negative (Negative); Specific Gravity - Urine 1.025 (1.005-1.025); Urine Blood Negative (Negative); Urine Ketones Negative (Negative); Urine Protein Negative (Neg-Trace)
[2024-10-13 08:30] LABS: Estimated Average Glucose 105 mg/dL; Hemoglobin A1C 119.2912 umol/L; Hemoglobin A1c % 5.3 % (<6.0); Total Hemoglobin (HGBA1C) 3468.5145 umol/L
[2024-10-13 08:47] LABS: Alanine Aminotransferase 28 U/L (0-31); Albumin Level 4.3 g/dL (3.5-5.0); Alkaline Phosphatase 70 U/L (39-117); Anion Gap 12 (12-20); Aspartate Amino Transferase 28 U/L (5-31); Bilirubin Total 0.5 mg/dL (0.0-1.0); Blood Urea Nitrogen 17 mg/dL (9-16); Calcium 8.9 mg/dL (8.4-10.2); Carbon Dioxide 28 mmol/L (22-29); Chloride 106 mmol/L (96-108); Cholesterol 171 mg/dL (<200); Estimated Glomerular Filt Rate > 60; Glucose Random 98 mg/dL (60-115); HDL Cholesterol 39 mg/dL (>40); LDL Cholesterol Calculated 114 mg/dL (<100); Potassium 4.3 mmol/L (3.3-5.1); Sodium 142 mmol/L (135-145); Total Protein 7.3 g/dL (6.5-8.0); Triglycerides 93 mg/dL (<150)
[2024-10-13 09:07] LABS: TSH reflex Free T4 2.44 uIU/mL (0.32-4.0); Vitamin D 25-OH Total 87.8 ng/mL (>30)
[2024-10-13 09:08] LABS: Vitamin B12 1251 pg/mL (200-900)
== END 2024-10-13 07:35 | disposition home or self-care (01) ==
LOC: HO.LAB 07:34
PROVIDERS: PCP Internal Medicine; Visit Provider Internal Medicine
DX: I10 Essential (primary) hypertension (principal); Z13.1 Encounter for screening for diabetes mellitus
CPT/HCPCS: 36415; 80053; 80061; 81003; 82306; 82607; 83036; 84443; 85025